=== PATIENT | male | born 1955 | race Caucasian/White ===

== ENCOUNTER 2019-05-26 00:38 | Emergency (ER) | payer SELFPAY ==
[~2019-05-26] VITALS: Ht 167.6 cm; Wt 57.1 kg
[2019-05-26] MEDS ORDERED: DICYCLOMINE HCL 20 MG TABLET PO ONE (01:30)
[2019-05-26] MEDS ORDERED: ONDANSETRON PF 4 MG/2 ML VIAL. IV ONE (01:30)
[2019-05-26] MEDS ORDERED: IV NORMAL SALINE 1,000ML 1,000 ML IV ONE (01:30)
[2019-05-26 01:37] LABS: BASO # 0.1 x10^3/uL (0.0-0.2); BASO % 1 % (0-3); EOS # 0.1 x10^3/uL (0.0-0.7); EOS % 0 % (0-3); HEMATOCRIT 43.2 % (39.0-53.0); HEMOGLOBIN 14.7 g/dL (13.0-17.5); LYMPH # 1.9 x10^3/uL (1.0-4.8); LYMPH % 13 % (24-48); MEAN CORPUSCULAR HEMOGLOBIN 30 pg (25-35); MEAN CORPUSCULAR HGB CONC 34 g/dL (31-37); MEAN CORPUSCULAR VOLUME 88 fL (79-100); MONO # 1.1 x10^3/uL (0.0-1.1); MONO % 7 % (0-9); NEUT # 11.5 x10^3uL (1.8-7.7); NEUT % 79 % (31-73); PLATELET COUNT 268 x10^3/uL (140-400); RED BLOOD COUNT 4.93 x10^6/uL (4.30-5.70); RED CELL DISTRIBUTION WIDTH 13.1 % (11.5-14.5); WHITE BLOOD COUNT 14.6 x10^3/uL (4.0-11.0)
[2019-05-26] MEDS ORDERED: ERGO500027 PO (01:48)
[2019-05-26] MEDS ORDERED: DICLOFENAC TOP (01:48)
[2019-05-26] MEDS ORDERED: OMEP40CA45 PO (01:51)
[2019-05-26] MEDS ORDERED: ASPI81TA50 PO (01:51)
[2019-05-26] MEDS ORDERED: IBUP800T19 PO (01:51)
[2019-05-26] MEDS ORDERED: ACET500T68 PO (01:51)
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
[2019-05-26 02:17] LABS: ALBUMIN 3.9 g/dL (3.4-5.0); ALBUMIN/GLOBULIN RATIO 0.9 (1.0-1.7); CREATININE 0.8 mg/dL (0.7-1.3); POTASSIUM 3.5 mmol/L (3.5-5.1); TOTAL BILIRUBIN 0.6 mg/dL (0.2-1.0); TOTAL PROTEIN 8.2 g/dL (6.4-8.2)
[2019-05-26] MEDS ORDERED: CONTRAST GIVEN MC PRN (03:00)
[2019-05-26] MEDS ORDERED: IOHEXOL 300 MG/ML 75 ML VIAL. IV ONE (03:00)
--- NOTE | 2019-05-26 03:34 | RAD ---
EXAM: CT ABDOMEN/PELVIS WITH CONTRAST. HISTORY: Left lower quadrant pain. TECHNIQUE: Computed tomography of the abdomen and pelvis was performed after the intravenous administration of iodinated contrast. COMPARISON: None. FINDINGS: Lung windows through the visualized portions of the bases reveal mild atelectasis. There is a calcified granuloma in the right lower lobe. There is a small hiatal hernia. Bone windows reveal no suspicious lesions. The liver, gallbladder, spleen, adrenal glands, pancreas and right kidney are unremarkable. There is a 1 cm cyst in the left kidney. There are no pathologically enlarged lymph nodes. Wall thickening of the transverse and descending colon indicate colitis. The small bowel is not involved. There is no small bowel obstruction. There is no appendicitis. The prostate is enlarged at 4.5 x 3.3 cm. IMPRESSION: 1. Transverse and left colitis. Infectious or inflammatory etiologies are favored in this distribution. 2. Small hiatal hernia. Correlate for distal esophagitis. *One or more of the following individualized dose reduction techniques were utilized for this examination: 1. Automated exposure control. 2. Adjustment of the mA and/or kV according to patient size. 3. Use of iterative reconstruction technique. Electronically signed by: Luciano Brink MD (05/26/2019 3:31 AM) [facility]
[2019-05-26] MEDS ORDERED: CIPR500T PO (03:51)
[2019-05-26] MEDS ORDERED: HYDR-3165 PO (03:51)
[2019-05-26] MEDS ORDERED: METR500T PO (03:51)
[2019-05-26] MEDS ORDERED: metroNIDAZOLE 500 MG TABLET PO ONE (04:00)
[2019-05-26] MEDS ORDERED: CIPROFLOXACIN HCL 500 MG TABLET PO ONE (04:00)
[2019-05-26 04:11] VITALS: BP 136/89
== END 2019-05-26 04:30 | disposition home or self-care (01) ==
LOC: ER 00:38
DX: K52.9 Noninfective gastroenteritis and colitis, unspecified (principal); K44.9 Diaphragmatic hernia without obstruction or gangrene; J44.9 Chronic obstructive pulmonary disease, unspecified; F15.10 Other stimulant abuse, uncomplicated; Z88.7 Allergy status to serum and vaccine
CPT/HCPCS: 36415; 74177; 80053; 83690; 85025; 87045; 96361; 96374; 99285; J2405; Q9967; J7030